=== PATIENT | male | born 1980 | race Caucasian/White ===

== ENCOUNTER 2018-07-25 13:31 | Emergency (ER) | payer OTHER ==
--- NOTE | 2018-07-25 13:47 | EDPHY ---
H & P Stated Complaint: R shoulder injury Time Seen by Provider: 07/25/18 13:45 - Personal History Current Tetanus/Diphtheria Vaccine: Yes Current Tetanus Diphtheria and Acellular Pertussis (TDAP): Yes - Medical/Surgical History Hx Asthma: No Hx Chronic Respiratory Disease: No Hx Diabetes: No Hx Cardiac Disease: No Hx Renal Disease: No Hx Cirrhosis: No Hx Alcoholism: No Hx HIV/AIDS: No Hx Splenectomy or Spleen Trauma: No Other PMH: denies - Social History Smoking Status: Never smoked Constitutional: Initial Vital Signs Temperature (C) 37.1 C 07/25/18 13:38 Heart Rate 76 07/25/18 13:38 Respiratory Rate 16 07/25/18 13:38 Blood Pressure 153/104 H 07/25/18 13:38 O2 Sat (%) 98 07/25/18 13:38 O2 Delivery Mode Room Air Allergies/Adverse Reactions: No Known Allergies Allergy (Unverified 07/25/18 13:38) Home Medications: Medication Instructions Recorded NK [No Known Home Meds] 07/25/18 Medical Decision Making ED Course/Re-evaluation: CHIEF COMPLAINT: Right shoulder injury HISTORY OF PRESENT ILLNESS: The patient is a 38 y/o male complaining of a right shoulder injury onset 1 hour ago. He was snowboarding today at [place] and accidently fell after catching an edge. He denies hitting his head or losing consciousness. He states that the muscles in his armpit are very tight and he believes it is dislocated. He denies any prior history of injuring his shoulder. No headache, chest pain, shortness of breath, abdominal pain, urinary or bowel complaints, numbness, paresthesias, fevers. REVIEW OF SYSTEMS: A comprehensive 10 system review of systems is otherwise negative aside from the elements mentioned in the history of present illness and medical decision making. PHYSICAL EXAM: HR, BP, O2 Sat, RR. Temp noted General Appearance: Alert, well hydrated, appropriate, and non-toxic appearing. Head: Atraumatic without scalp tenderness or obvious injury Eyes: Pupils equal, round, reactive to light and accommodation, EOMI, no trauma , no injection. Ears: Clear bilaterally, no perforation, normal landmarks Nose: Atraumatic, no rhinorrhea, clear. Throat: There is no erythema or exudates, no lesions, normal tonsils, mucus membranes moist. Neck: Supple, 2+ carotid upstroke, nontender, no lymphadenopathy. Respiratory: No retractions, no distress, no wheezes, and no accessory muscle use. Lungs are clear to auscultation bilaterally. Cardiovascular: Regular rate and rhythm, no murmurs, rubs, or gallops. Bilateral carotid, radial, dorsalis pedis, and posterior tibial pulses intact. Good capillary refill all extremities. Gastrointestinal: Abdomen is soft, nontender, non-distended, no masses, no rebound, no guarding, no peritoneal signs. Musculoskeletal: Right shoulder step off; neurovascularly intact. No other injury. Neurological: Alert, appropriate, and interactive. The patient has normal DTRs and non-focal cranial nerves, motor, sensory, and cerebellar exam. Skin: No rashes, good turgor, no nodules on palpation. Past medical history: Denies Past surgical history: Denies Family history: Denies Social history: Friend at bedside, lives in [place], single DIAGNOSTICS/PROCEDURES/CRITICAL CARE TIME: Right shoulder x-ray: Anterior dislocation Procedure: Reduction of dislocated shoulder Time-out completed immediately before the procedure. Neurovascular exam intact pre-procedure. The right shoulder was reduced using the prone technique. Reassessed post-procedure. Neurovascular status intact- normal median, radial, ulnar and axillary nerve motor and sensory exam. Exam indicated reduction. Confirmed reduction on X-ray. Arm sling applied. The procedure was performed by myself, Dr. Mann. DIFFERENTIAL DIAGNOSIS: The differential diagnosis for the patient's shoulder injury included but was not limited to dislocation, fracture, ligamentous injury, contusion, muscular strain, and rotator cuff injury. MEDICAL DECISION MAKING: The patient is a 38 y/o male complaining of a right shoulder injury onset 1 hour ago while snowboarding. On exam he has a right shoulder step off. He is neurovascularly intact. Right shoulder x-ray ordered. 1355: I reviewed patients right shoulder x-ray which reveals an anterior dislocation. 1400: Reassessed patient and discussed imaging findings. I have successfully reduced his shoulder using the prone technique. Post-reduction x-ray ordered. 1430: Reassessed patient and discussed post-reduction x-ray findings. 600mg PO Motrin administered to patient prior to discharge. I have advised him to follow up with an orthopedic surgeon. Return precautions provided; patient is comfortable with this plan. - Data Points Medications Given: Discontinued Medications Ibuprofen (Motrin) 600 mg PO EDNOW ONE Stop: 07/25/18 14:11 Last Admin: 07/25/18 14:12 Dose: 600 mg Departure - Departure Disposition: Home, Routine, Self-Care Clinical Impression: Dislocation of right shoulder joint Qualifiers: Encounter type: initial encounter Qualified Code(s): S43.004A - Unspecified dislocation of right shoulder joint, initial encounter Condition: Good Instructions: Shoulder Dislocation (ED) Additional Instructions: 1. Rest and ice. 2. Follow up with an orthopedic surgeon within one week. 3. Return to the emergency department for worsening pain, swelling, numbness, weakness or other concerns. 4. Wear sling at all times until reevaluation. Referrals: Roshan Thompson MD [Medical Doctor] - As per Instructions Report Scribed for: Yannick Mann Report Scribed by: Simran Archibald Date of Report: 07/25/18 Time of Report: 14:04
[2018-07-25] MEDS ORDERED: IBUPROFEN 600 MG TAB PO ONE (14:10)
[2018-07-25 14:49] VITALS: BP 140/108
== END 2018-07-25 14:48 | disposition home or self-care (01) ==
PROC: 0RSJXZZ Reposition Right Shoulder Joint, External Approach (ICD-10-PCS; principal; 2018-07-25)
DX: S43.004A Unspecified dislocation of right shoulder joint, initial encounter (principal); V00.311A Fall from snowboard, initial encounter